=== PATIENT | female | born 1945 | race African-American/Black ===

== ENCOUNTER 2023-09-14 15:50 | Inpatient (IN) | payer MEDICAID ==
[~2023-09-14] VITALS: Ht 162.6 cm; Wt 43.1 kg
[2023-09-14] MEDS: SODIUM CHLORIDE 0.9% 500 ML IV ONE (16:41)
[2023-09-14 16:57] LABS: HEMATOCRIT. 28.2 % (36.0-48.0); HEMOGLOBIN. 9.7 g/dL (12.0-16.0); MEAN CORPUSCULAR HEMOGLOBIN 27.6 pg (28.0-32.0); MEAN CORPUSCULAR HGB CONC 34.4 g/dL (31.0-37.0); MEAN CORPUSCULAR VOLUME 80.3 fL (81.0-99.0); PLATELET 253 x1000/uL (130-400); RED BLOOD CELL COUNT 3.52 mill/uL (4.2-5.4); RED CELL DISTRIBUTION WIDTH 15.9 % (11.6-14.6); WHITE BLOOD COUNT 12.3 x1000/uL (4.5-11.0)
[2023-09-14 17:00] LABS: DIFFERENTIAL COMMENT 1
[2023-09-14 17:04] LABS: CHLORIDE 62 mEq/L (98-107); POTASSIUM 3.5 mEq/L (3.5-5.1)
[2023-09-14 17:05] LABS: CALCIUM 7.5 mg/dL (8.7-10.4); CARBON DIOXIDE 14 mEq/L (21-32)
[2023-09-14 17:09] LABS: AMMONIA 58 uMol/L (<32)
[2023-09-14 17:10] LABS: CREATININE 2.6 mg/dL (0.6-1.0); GLUCOSE 143 mg/dL (70-105)
[2023-09-14 17:11] LABS: ETHANOL BLOOD < 10 mg/dL (<10)
[2023-09-14 17:12] LABS: ACETAMINOPHEN 3 ug/mL (10-30); ALANINE AMINOTRANSFERASE 82 IU/L (10-49); ALBUMIN 3.6 g/dL (3.2-4.8); ASPARTATE AMINOTRANSFERASE 77 IU/L (<34); BILIRUBIN DIRECT 1.9 mg/dL (<=3.0); BILIRUBIN TOTAL 2.1 mg/dL (0.1-1.0); PROTEIN TOTAL 7.7 g/dL (6.0-8.3)
[2023-09-14 17:14] LABS: THYROID STIMULATING HORMONE 0.56 uIU/mL (0.55-4.78)
[2023-09-14 17:20] LABS: SODIUM 100 mEq/L (136-145); TROPONIN I HIGH SENSITIVITY 166 ng/L (3.0-34)
[2023-09-14 17:22] LABS: UREA NITROGEN BLOOD 204 mg/dL (9-23)
[2023-09-14 17:25] LABS: PLATELET ESTIMATE NORMAL
[2023-09-14] MEDS ORDERED: SODIUM CHLORIDE 3% 500ML IV SOLN IV ONE (17:45)
[2023-09-14 18:13] LABS: CLARITY URINE CLEAR (CLEAR); COLOR URINE DARK YELLOW (YELLOW); GLUCOSE URINE NEGATIVE (NEGATIVE); KETONES URINE NEGATIVE (NEGATIVE); LEUKOCYTE ESTERASE URINE NEGATIVE (NEGATIVE); NITRITE URINE NEGATIVE (NEGATIVE); OCCULT BLOOD URINE NEGATIVE (NEGATIVE); PROTEIN URINE NEGATIVE (NEGATIVE); SPECIFIC GRAVITY URINE 1.015 (1.005-1.030); UROBILINOGEN URINE 0.2 E.U./dL (0.2-1.0)
[2023-09-14] MEDS ORDERED: ASPIRIN 325MG EC TABLET PO ONE (18:15)
[2023-09-14 18:27] LABS: *AMPHETAMINES SCREEN URINE NEGATIVE (NEGATIVE); *BARBITURATES SCREEN URINE NEGATIVE (NEGATIVE); *BENZODIAZEPINES SCREEN URINE NEGATIVE (NEGATIVE); *COCAINE SCREEN URINE NEGATIVE (NEGATIVE); CANNABINOID URINE SCREEN NEGATIVE (NEGATIVE); ECSTASY MDMA SCREEN URINE NEGATIVE (NEGATIVE); METHADONE URINE SCREEN NEGATIVE (NEGATIVE); OPIATES URINE SCREEN NEGATIVE (NEGATIVE); PHENCYCLIDINE URINE SCREEN NEGATIVE (NEGATIVE)
[2023-09-14] MEDS: SODIUM CHLORIDE 3% 500 ML IV NR (18:50)
[2023-09-14] MEDS ORDERED: CALCIUM GLUCONATE 1GM PREMIX 50 ML IV ONE (19:00)
[2023-09-14] MEDS: ASPIRIN 325MG EC TABLET PO NR (19:22)
[2023-09-14] MEDS: CALCIUM GLUCONATE 1GM PREMIX 50 ML IV NR (20:48)
[2023-09-14] MEDS ORDERED: ONDANSETRON HCL 4MG/2ML INJ IV PRN (21:30)
[2023-09-14] MEDS ORDERED: IPRATROPIUM/ALBUTEROL 0.5-3(2.5)MG/3ML NEB NEB PRN (21:30)
[2023-09-14] MEDS: ASPIRIN 300MG SUPP PR NR (21:57)
[2023-09-14] MEDS: ENOXAPARIN 60MG/0.6ML SYR SUBCUT NR (21:57)
[2023-09-14 22:24] LABS: INR 1.1; PROTHROMBIN TIME 12.2 sec (9.6-11.0)
[2023-09-14 22:29] LABS: CREATININE 2.1 mg/dL (0.6-1.0)
[2023-09-14 22:45] LABS: POTASSIUM 2.6 mEq/L (3.5-5.1)
[2023-09-14] MEDS: CEFTRIAXONE 1GM/50ML 50 ML IV NR (22:48)
[2023-09-14] MEDS: SODIUM CHLORIDE 0.9% 1,000 ML IV SCH (22:49)
[2023-09-14] MEDS ORDERED: VANCOMYCIN 1.25GM PMX (XELLIA) 250 ML IV NR ×2 (23:00)
[2023-09-14] MEDS: PIPERACILLIN/TAZO 3.375G/50ML 50 ML IV SCH (23:20)
[2023-09-14 23:25] LABS: CALCIUM 7.9 mg/dL (8.7-10.4)
[2023-09-14 23:29] LABS: IRON 44 ug/dL (50-170)
[2023-09-14 23:34] LABS: FOLIC ACID (FOLATE) SERUM > 20.00 ng/mL (>5.38)
[2023-09-14] MEDS: VANCOMYCIN 1GM/200ML PMX (BAXTER) IV NR (23:56)
[2023-09-14 23:57] LABS: TOTAL IRON BINDING CAPACITY > 670 ug/dl (250-425)
[2023-09-15] VITALS (47 sets, daily range): BP systolic 75–110; BP diastolic 43–69; PULSE 72–118; RESP 11–27; TEMP 97.5–98.3
[2023-09-15 00:04] LABS: PHOSPHORUS 10.4 mg/dL (2.5-4.9)
[2023-09-15 00:06] LABS: VITAMIN B12 SERUM > 2000 pg/mL (211-911)
[2023-09-15] MEDS: PANTOPRAZOLE SODIUM 40 MG/VIAL IV SCH (00:15)
[2023-09-15] MEDS ORDERED: CALCIUM ACETATE 667MG CAPSULE PO ONE (00:15)
[2023-09-15 00:21] LABS: TROPONIN I HIGH SENSITIVITY 185 ng/L (3.0-34)
[2023-09-15] MEDS: CALCIUM ACETATE 667MG CAPSULE PO NR (00:30)
[2023-09-15] MEDS: METOCLOPRAMIDE HCL 10MG/2ML VIAL IV SCH (00:30)
[2023-09-15] MEDS ORDERED: SENNOSIDES/DOCUSATE SOD 8.6/50MG TABLET PO PRN (00:30)
[2023-09-15] MEDS ORDERED: PHENYLEPHRINE 50MG/250ML PMX 250 ML IV PRN (00:45)
[2023-09-15] MEDS: POTASSIUM CHLORIDE 40 MEQ in DEXT 5% WATER 230 ML IV NR (01:13)
[2023-09-15 06:01] LABS: HEMATOCRIT. 25.9 % (36.0-48.0); HEMOGLOBIN. 8.9 g/dL (12.0-16.0); MEAN CORPUSCULAR HEMOGLOBIN 27.4 pg (28.0-32.0); MEAN CORPUSCULAR HGB CONC 34.4 g/dL (31.0-37.0); MEAN CORPUSCULAR VOLUME 79.8 fL (81.0-99.0); MEAN PLATELET VOLUME 8.4 fl (7.4-10.4); PLATELET 208 x1000/uL (130-400); RED BLOOD CELL COUNT 3.24 mill/uL (4.2-5.4); RED CELL DISTRIBUTION WIDTH 15.5 % (11.6-14.6); WHITE BLOOD COUNT 12.9 x1000/uL (4.5-11.0)
[2023-09-15 06:13] LABS: CHLORIDE 84 mEq/L (98-107); POTASSIUM 3.1 mEq/L (3.5-5.1)
[2023-09-15 06:14] LABS: CALCIUM 7.6 mg/dL (8.7-10.4); CARBON DIOXIDE 15 mEq/L (21-32)
[2023-09-15 06:19] LABS: CREATININE 1.6 mg/dL (0.6-1.0); GLUCOSE 140 mg/dL (70-105); TRIGLYCERIDE 67 mg/dL (0-150); URIC ACID 12.7 mg/dL (3.1-7.8)
[2023-09-15 06:20] LABS: LDL CHOLESTEROL 49 mg/dL (5-100)
[2023-09-15 06:21] LABS: CHOLESTEROL 94 mg/dL (<200); HDL CHOLESTEROL 34 mg/dL (>65)
[2023-09-15 06:23] LABS: T4 FREE 1.59 ng/dL (0.89-1.76); THYROID STIMULATING HORMONE 0.46 uIU/mL (0.55-4.78)
[2023-09-15 06:25] LABS: DIFFERENTIAL COMMENT 1
[2023-09-15 08:16] LABS: SODIUM 115 mEq/L (136-145); UREA NITROGEN BLOOD 175 mg/dL (9-23)
[2023-09-15 08:17] LABS: PHOSPHORUS 8.5 mg/dL (2.5-4.9)
[2023-09-15] MEDS: INSULIN LISPRO 100 UNITS/ML SUBCUT SCH (08:20)
[2023-09-15] MEDS: BLOOD SUGAR DIAGNOSTIC STRIP TEST SCH (09:57)
[2023-09-15] MEDS: KCL 20MEQ/100ML PREMIX 100 ML IV SCH (09:57)
[2023-09-15] MEDS: PHENYLEPHRINE 50MG/250ML PMX 250 ML IV PRN (10:31)
[2023-09-15] MEDS ORDERED: SODIUM CHLORIDE 0.9% 1,000 ML IV SCH (10:45)
[2023-09-15 11:32] LABS: CALCIUM 7.8 mg/dL (8.7-10.4)
[2023-09-15 11:35] LABS: POTASSIUM 2.8 mEq/L (3.5-5.1)
[2023-09-15 11:37] LABS: CREATININE 1.5 mg/dL (0.6-1.0)
[2023-09-15] MEDS ORDERED: POTASSIUM CHLORIDE 40 MEQ in DEXT 5% WATER 230 ML IV ONE (12:00)
[2023-09-15] MEDS: KCL 20MEQ/100ML X 2 FOR TOTAL KCL 40MEQ/200ML IV SCH (12:05)
[2023-09-15 13:37] LABS: ANISOCYTOSIS 1+; GIANT PLATELETS FEW; MICROCYTOSIS 1+; PLATELET ESTIMATE NORMAL
[2023-09-15] MEDS: DEXTROSE 5% WATER 1,000 ML IV ONE (13:39)
[2023-09-15 16:48] LABS: POTASSIUM 3.2 mEq/L (3.5-5.1)
[2023-09-15 16:50] LABS: CALCIUM 7.8 mg/dL (8.7-10.4)
[2023-09-15 16:54] LABS: CREATININE 1.4 mg/dL (0.6-1.0)
[2023-09-15 22:10] LABS: CALCIUM 8.1 mg/dL (8.7-10.4)
[2023-09-15 22:15] LABS: CREATININE 1.4 mg/dL (0.6-1.0)
[2023-09-15 22:21] LABS: POTASSIUM 2.7 mEq/L (3.5-5.1)
[2023-09-15 22:59] LABS: PHOSPHORUS 6.9 mg/dL (2.5-4.9)
[2023-09-16] VITALS (61 sets, daily range): BP systolic 85–117; BP diastolic 46–75; PULSE 76–115; RESP 13–23; TEMP 97.4–98.4
[2023-09-16] MEDS: KCL 20MEQ/100ML PREMIX 100 ML IV SCH (01:32)
[2023-09-16 04:51] LABS: HEMATOCRIT. 26.6 % (36.0-48.0); HEMOGLOBIN. 9.1 g/dL (12.0-16.0); MEAN CORPUSCULAR HGB CONC 34.3 g/dL (31.0-37.0); MEAN CORPUSCULAR VOLUME 81.7 fL (81.0-99.0); MEAN PLATELET VOLUME 9.6 fl (7.4-10.4); PLATELET 254 x1000/uL (130-400); RED BLOOD CELL COUNT 3.26 mill/uL (4.2-5.4); RED CELL DISTRIBUTION WIDTH 15.8 % (11.6-14.6); WHITE BLOOD COUNT 14.1 x1000/uL (4.5-11.0)
[2023-09-16 04:55] LABS: DIFFERENTIAL COMMENT 1
[2023-09-16 04:59] LABS: CARBON DIOXIDE 11 mEq/L (21-32); CHLORIDE 94 mEq/L (98-107); POTASSIUM 2.9 mEq/L (3.5-5.1)
[2023-09-16 05:00] LABS: CALCIUM 8.2 mg/dL (8.7-10.4)
[2023-09-16 05:04] LABS: IRON 24 ug/dL (50-170)
[2023-09-16 05:05] LABS: CREATININE 1.2 mg/dL (0.6-1.0); GLUCOSE 183 mg/dL (70-105); INR 1.1; LACTIC ACID 2.8 mmol/L (0.4-2.0); PROTHROMBIN TIME 12.2 sec (9.6-11.0)
[2023-09-16 05:06] LABS: ALBUMIN 3.4 g/dL (3.2-4.8)
[2023-09-16 05:07] LABS: ALANINE AMINOTRANSFERASE 69 IU/L (10-49); AMMONIA 59 uMol/L (<32); ASPARTATE AMINOTRANSFERASE 70 IU/L (<34); BILIRUBIN TOTAL 2.2 mg/dL (0.1-1.0); PHOSPHORUS 5.4 mg/dL (2.5-4.9); PLATELET ESTIMATE NORMAL; PROTEIN TOTAL 7.3 g/dL (6.0-8.3)
[2023-09-16 05:08] LABS: GIANT PLATELETS FEW; TARGET CELLS 1+; TEAR DROP CELLS 1+
[2023-09-16 05:21] LABS: TOTAL IRON BINDING CAPACITY > 670 ug/dl (250-425)
[2023-09-16 05:22] LABS: SODIUM 119 mEq/L (136-145)
[2023-09-16 05:23] LABS: UREA NITROGEN BLOOD 136 mg/dL (9-23)
[2023-09-16] MEDS: PIPERACILLIN/TAZO 3.375G/50ML IV SCH (09:00)
[2023-09-16] MEDS: FAMOTIDINE 20MG/2ML VIAL IV SCH (09:00)
[2023-09-16] MEDS: KCL 20MEQ/100ML X 3 FOR TOTAL KCL 60MEQ/300ML IV SCH (09:15)
[2023-09-16 11:44] LABS: CLARITY URINE TURBID (CLEAR); COLOR URINE DARK YELLOW (YELLOW); GLUCOSE URINE NEGATIVE (NEGATIVE); KETONES URINE NEGATIVE (NEGATIVE); LEUKOCYTE ESTERASE URINE 3+ (NEGATIVE); NITRITE URINE NEGATIVE (NEGATIVE); OCCULT BLOOD URINE 3+ (NEGATIVE); PROTEIN URINE 1+ (NEGATIVE); SPECIFIC GRAVITY URINE 1.008 (1.005-1.030)
[2023-09-16 11:58] LABS: AMORPHOUS SEDIMENT URINE 4+ /lpf; SQUAMOUS EPITHELIAL CELL URINE FEW /lpf (RARE/1+)
[2023-09-16 11:59] LABS: MUCUS URINE 2+ /lpf (< = 2+)
[2023-09-16 12:03] LABS: BACTERIA URINE 4+
[2023-09-16 12:04] LABS: YEAST URINE 3+
[2023-09-16 12:06] LABS: RBC URINE NONE SEEN /hpf (0-2); WBC URINE NONE SEEN /hpf (0-2)
[2023-09-16] MEDS: SODIUM BICARBONATE 8.4% 50MEQ/50ML SYR IV NR (13:25)
[2023-09-16] MEDS: SODIUM BICARBONATE 100 MEQ in SODIUM CHLORIDE 0.45% 900 ML IV SCH (13:26)
[2023-09-16] MEDS: PHENYLEPHRINE 100 MG in DEXT 5% WATER 240 ML IV PRN (15:51)
[2023-09-16 21:08] LABS: CHLORIDE 101 mEq/L (98-107); POTASSIUM 4.1 mEq/L (3.5-5.1); SODIUM 125 mEq/L (136-145)
[2023-09-16 21:09] LABS: CALCIUM 8.3 mg/dL (8.7-10.4); CARBON DIOXIDE 14 mEq/L (21-32)
[2023-09-16 21:14] LABS: CREATININE 0.9 mg/dL (0.6-1.0); GLUCOSE 132 mg/dL (70-105); UREA NITROGEN BLOOD 70 mg/dL (9-23)
[2023-09-17] VITALS (96 sets, daily range): BP systolic 77–120; BP diastolic 43–92; PULSE 66–147; RESP 10–23; TEMP 96.8–98.6
[2023-09-17 05:44] LABS: BASOPHILS % 0.1 % (0.0-2.0); CHLORIDE 100 mEq/L (98-107); HEMATOCRIT. 25.8 % (36.0-48.0); HEMOGLOBIN. 8.9 g/dL (12.0-16.0); LYMPHOCYTES % 7.1 % (20.0-50.0); MEAN CORPUSCULAR HEMOGLOBIN 27.7 pg (28.0-32.0); MEAN CORPUSCULAR HGB CONC 34.5 g/dL (31.0-37.0); MEAN CORPUSCULAR VOLUME 80.2 fL (81.0-99.0); MEAN PLATELET VOLUME 9.2 fl (7.4-10.4); MONOCYTES % 6.6 % (2.0-8.0); NEUTROPHILS % 86.2 % (40.0-76.0); PLATELET 262 x1000/uL (130-400); POTASSIUM 3.4 mEq/L (3.5-5.1); RED BLOOD CELL COUNT 3.21 mill/uL (4.2-5.4); RED CELL DISTRIBUTION WIDTH 15.7 % (11.6-14.6); SODIUM 130 mEq/L (136-145); WHITE BLOOD COUNT 16.2 x1000/uL (4.5-11.0)
[2023-09-17 05:45] LABS: CALCIUM 8.3 mg/dL (8.7-10.4); CARBON DIOXIDE 19 mEq/L (21-32)
[2023-09-17 05:50] LABS: GLUCOSE 158 mg/dL (70-105); UREA NITROGEN BLOOD 100 mg/dL (9-23)
[2023-09-17 05:52] LABS: PHOSPHORUS 4.3 mg/dL (2.5-4.9)
[2023-09-17 09:06] LABS: ALPHA FETOPROTEIN TUMOR MARKER 2.2 ng/mL (0.0-9.2)
[2023-09-17] MEDS: KCL 20MEQ/100ML PREMIX 100 ML IV SCH ×2 (09:29→21:52)
[2023-09-17] MEDS: DEXT 5%/0.45% NACL 1000ML 1,000 ML IV SCH (09:29)
[2023-09-17] MEDS: SODIUM CHLORIDE 0.9% 1,000 ML IV ONE (09:54)
[2023-09-17] MEDS ORDERED: SODIUM CHLORIDE 0.9% 1,000 ML IV NR (10:15)
[2023-09-17 21:11] LABS: CHLORIDE 110 mEq/L (98-107); POTASSIUM 3.2 mEq/L (3.5-5.1); SODIUM 140 mEq/L (136-145)
[2023-09-17 21:13] LABS: CALCIUM 7.9 mg/dL (8.7-10.4); CARBON DIOXIDE 23 mEq/L (21-32)
[2023-09-17 21:18] LABS: CREATININE 0.8 mg/dL (0.6-1.0); GLUCOSE 119 mg/dL (70-105); UREA NITROGEN BLOOD 52 mg/dL (9-23)
[2023-09-18] VITALS (94 sets, daily range): BP systolic 74–135; BP diastolic 38–94; PULSE 50–89; RESP 10–21; TEMP 97.5–99.1
[2023-09-18 05:28] LABS: BASOPHILS % 0.1 % (0.0-2.0); EOSINOPHILS % 0.7 % (0.0-5.0); HEMATOCRIT. 23.5 % (36.0-48.0); HEMOGLOBIN. 7.7 g/dL (12.0-16.0); LYMPHOCYTES % 7.3 % (20.0-50.0); MEAN CORPUSCULAR HEMOGLOBIN 27.6 pg (28.0-32.0); MEAN CORPUSCULAR HGB CONC 32.9 g/dL (31.0-37.0); MEAN PLATELET VOLUME 8.9 fl (7.4-10.4); MONOCYTES % 5.1 % (2.0-8.0); NEUTROPHILS % 86.8 % (40.0-76.0); PLATELET 205 x1000/uL (130-400); RED BLOOD CELL COUNT 2.79 mill/uL (4.2-5.4); WHITE BLOOD COUNT 22.2 x1000/uL (4.5-11.0)
[2023-09-18 06:09] LABS: CHLORIDE 112 mEq/L (98-107); POTASSIUM 3.6 mEq/L (3.5-5.1); SODIUM 139 mEq/L (136-145)
[2023-09-18 06:10] LABS: CARBON DIOXIDE 20 mEq/L (21-32)
[2023-09-18 06:15] LABS: CREATININE 0.6 mg/dL (0.6-1.0); GLUCOSE 141 mg/dL (70-105); UREA NITROGEN BLOOD 38 mg/dL (9-23)
[2023-09-18] MEDS: KCL 20MEQ/100ML PREMIX 100 ML IV NR (09:09)
[2023-09-18] MEDS: FERROUS SULFATE 325MG TABLET PO SCH (13:02)
[2023-09-18 13:09] LABS: LACTIC ACID 2.6 mmol/L (0.4-2.0)
[2023-09-18] MEDS: MIDODRINE HCL 5MG TABLET PO SCH (14:24)
[2023-09-18] MEDS: SODIUM CHLORIDE 0.45% 1,000 ML IV SCH (15:59)
[2023-09-18] MEDS: ASCORBIC ACID 250 MG TABLET PO SCH (22:13)
[2023-09-19] VITALS (96 sets, daily range): BP systolic 86–129; BP diastolic 46–71; PULSE 57–107; RESP 11–27; TEMP 97.4–98.9
[2023-09-19 04:37] LABS: BASOPHILS % 0.1 % (0.0-2.0); EOSINOPHILS % 0.7 % (0.0-5.0); HEMATOCRIT. 23.9 % (36.0-48.0); HEMOGLOBIN. 7.6 g/dL (12.0-16.0); LYMPHOCYTES % 9.2 % (20.0-50.0); MEAN CORPUSCULAR HEMOGLOBIN 26.9 pg (28.0-32.0); MEAN CORPUSCULAR HGB CONC 31.7 g/dL (31.0-37.0); MEAN CORPUSCULAR VOLUME 84.8 fL (81.0-99.0); MEAN PLATELET VOLUME 8.8 fl (7.4-10.4); MONOCYTES % 5.1 % (2.0-8.0); NEUTROPHILS % 84.9 % (40.0-76.0); PLATELET 195 x1000/uL (130-400); RED BLOOD CELL COUNT 2.82 mill/uL (4.2-5.4); RED CELL DISTRIBUTION WIDTH 16.3 % (11.6-14.6); WHITE BLOOD COUNT 24.1 x1000/uL (4.5-11.0)
[2023-09-19 04:40] LABS: CHLORIDE 111 mEq/L (98-107); POTASSIUM 3.5 mEq/L (3.5-5.1); SODIUM 138 mEq/L (136-145)
[2023-09-19 04:41] LABS: CALCIUM 8.1 mg/dL (8.7-10.4); CARBON DIOXIDE 18 mEq/L (21-32)
[2023-09-19 04:45] LABS: UREA NITROGEN BLOOD 27 mg/dL (9-23)
[2023-09-19 04:46] LABS: CREATININE 0.6 mg/dL (0.6-1.0); GLUCOSE 123 mg/dL (70-105)
[2023-09-19 04:48] LABS: ALANINE AMINOTRANSFERASE 55 IU/L (10-49); ALBUMIN 2.9 g/dL (3.2-4.8); ASPARTATE AMINOTRANSFERASE 53 IU/L (<34); BILIRUBIN DIRECT 2.9 mg/dL (<=3.0); PHOSPHORUS 2.1 mg/dL (2.5-4.9)
[2023-09-19 04:49] LABS: AMMONIA 31 uMol/L (<32); BILIRUBIN TOTAL 3.5 mg/dL (0.1-1.0); PROTEIN TOTAL 6.2 g/dL (6.0-8.3)
[2023-09-19] MEDS: MAGNESIUM 2 G PREMIX 50 ML IV NR (05:33)
[2023-09-19] MEDS: POTASSIUM PHOSPHATE 20 MMOL in DEXT 5% WATER 243.3333 ML IV NR (05:51)
[2023-09-19] MEDS: CITRIC ACID/SODIUM CITRATE SOLN 30ML UDC PO SCH (08:24)
[2023-09-19] MEDS: ENOXAPARIN 30MG/0.3ML SYR SUBCUT SCH (08:24)
[2023-09-19] MEDS ORDERED: MIDODRINE HCL 5MG TABLET PO SCH (14:00)
[2023-09-19] MEDS ORDERED: MIDODRINE HCL 5MG TABLET PO NR (14:30)
[2023-09-19] MEDS: MIDODRINE HCL 5MG TABLET PO NR (14:58)
[2023-09-19 18:26] LABS: PHOSPHORUS 2.9 mg/dL (2.5-4.9)
[2023-09-19] MEDS: MIDODRINE HCL 5MG TABLET PO SCH (21:40)
[2023-09-20] VITALS (99 sets, daily range): BP systolic 76–133; BP diastolic 49–83; PULSE 65–94; RESP 11–29; TEMP 97.7–98.8
[2023-09-20 05:47] LABS: EOSINOPHILS % 0.3 % (0.0-5.0); HEMATOCRIT. 22.9 % (36.0-48.0); HEMOGLOBIN. 7.4 g/dL (12.0-16.0); LYMPHOCYTES % 13.4 % (20.0-50.0); MEAN CORPUSCULAR HEMOGLOBIN 27.4 pg (28.0-32.0); MEAN CORPUSCULAR HGB CONC 32.5 g/dL (31.0-37.0); MEAN CORPUSCULAR VOLUME 84.2 fL (81.0-99.0); MONOCYTES % 3.6 % (2.0-8.0); NEUTROPHILS % 82.7 % (40.0-76.0); PLATELET 168 x1000/uL (130-400); RED BLOOD CELL COUNT 2.72 mill/uL (4.2-5.4); RED CELL DISTRIBUTION WIDTH 16.7 % (11.6-14.6); WHITE BLOOD COUNT 19.5 x1000/uL (4.5-11.0)
[2023-09-20 05:56] LABS: AMMONIA 34 uMol/L (<32)
[2023-09-20] MEDS: INSULIN LISPRO 100 UNITS/ML SUBCUT SCH (06:00)
[2023-09-20] MEDS: BLOOD SUGAR DIAGNOSTIC STRIP TEST SCH (06:00)
[2023-09-20 06:02] LABS: CHLORIDE 106 mEq/L (98-107); POTASSIUM 3.5 mEq/L (3.5-5.1); SODIUM 137 mEq/L (136-145)
[2023-09-20 06:03] LABS: CALCIUM 8.1 mg/dL (8.7-10.4); CARBON DIOXIDE 22 mEq/L (21-32)
[2023-09-20 06:08] LABS: CREATININE 0.7 mg/dL (0.6-1.0); GLUCOSE 140 mg/dL (70-105); UREA NITROGEN BLOOD 21 mg/dL (9-23)
[2023-09-20 06:10] LABS: ALANINE AMINOTRANSFERASE 49 IU/L (10-49); ALBUMIN 2.8 g/dL (3.2-4.8); ASPARTATE AMINOTRANSFERASE 49 IU/L (<34); BILIRUBIN DIRECT 3.1 mg/dL (<=3.0); PHOSPHORUS 2.7 mg/dL (2.5-4.9)
[2023-09-20 06:11] LABS: BILIRUBIN TOTAL 3.9 mg/dL (0.1-1.0)
[2023-09-20] MEDS ORDERED: ZINC SULF/CUSO4 P-HYD/MANG/CR 10 ML VIAL IV SCH (08:20)
[2023-09-20] MEDS: MULTIVITAMINS,THER W-MINERALS TABLET PO SCH (13:19)
[2023-09-20] MEDS: SODIUM CHLORIDE 0.9% 1,000 ML IV SCH (14:09)
[2023-09-21] VITALS (96 sets, daily range): BP systolic 84–121; BP diastolic 44–71; PULSE 62–87; RESP 13–44; TEMP 97.7–98.5
[2023-09-21 05:54] LABS: BASOPHILS % 0.1 % (0.0-2.0); CHLORIDE 110 mEq/L (98-107); EOSINOPHILS % 0.4 % (0.0-5.0); HEMOGLOBIN. 7.7 g/dL (12.0-16.0); LYMPHOCYTES % 17.4 % (20.0-50.0); MEAN CORPUSCULAR HEMOGLOBIN 27.4 pg (28.0-32.0); MEAN CORPUSCULAR HGB CONC 32.1 g/dL (31.0-37.0); MEAN CORPUSCULAR VOLUME 85.5 fL (81.0-99.0); MEAN PLATELET VOLUME 8.8 fl (7.4-10.4); MONOCYTES % 4.1 % (2.0-8.0); PLATELET 131 x1000/uL (130-400); POTASSIUM 3.2 mEq/L (3.5-5.1); RED BLOOD CELL COUNT 2.81 mill/uL (4.2-5.4); RED CELL DISTRIBUTION WIDTH 17.2 % (11.6-14.6); SODIUM 143 mEq/L (136-145)
[2023-09-21 05:55] LABS: CARBON DIOXIDE 27 mEq/L (21-32)
[2023-09-21 05:56] LABS: CALCIUM 7.7 mg/dL (8.7-10.4)
[2023-09-21 06:00] LABS: CREATININE 0.6 mg/dL (0.6-1.0); GLUCOSE 114 mg/dL (70-105)
[2023-09-21 06:01] LABS: UREA NITROGEN BLOOD 22 mg/dL (9-23)
[2023-09-21 06:02] LABS: ALANINE AMINOTRANSFERASE 48 IU/L (10-49); ALBUMIN 2.5 g/dL (3.2-4.8); ASPARTATE AMINOTRANSFERASE 49 IU/L (<34)
[2023-09-21 06:03] LABS: AMMONIA < 17 uMol/L (<32); BILIRUBIN DIRECT 3.4 mg/dL (<=3.0); BILIRUBIN TOTAL 4.1 mg/dL (0.1-1.0); PROTEIN TOTAL 5.4 g/dL (6.0-8.3)
[2023-09-21] MEDS: POTASSIUM CHLORIDE 20MEQ/PACKET PO NR (10:03)
[2023-09-21 10:10] LABS: PHOSPHORUS 2.4 mg/dL (2.5-4.9)
[2023-09-21] MEDS: MAGNESIUM 2 G PREMIX 50 ML IV NR (11:08)
[2023-09-21] MEDS: MIDODRINE HCL 5MG TABLET PO SCH (13:07)
[2023-09-21] MEDS: POTASSIUM PHOSPHATE 20 MMOL in DEXT 5% WATER 243.3333 ML IV NR (13:07)
[2023-09-22] VITALS (97 sets, daily range): BP systolic 75–122; BP diastolic 44–69; PULSE 57–87; RESP 15–35; TEMP 98.1–98.8
[2023-09-22 06:16] LABS: BASOPHILS % 0.2 % (0.0-2.0); EOSINOPHILS % 0.6 % (0.0-5.0); HEMATOCRIT. 22.7 % (36.0-48.0); HEMOGLOBIN. 7.4 g/dL (12.0-16.0); LYMPHOCYTES % 21.9 % (20.0-50.0); MEAN CORPUSCULAR HEMOGLOBIN 27.7 pg (28.0-32.0); MEAN CORPUSCULAR HGB CONC 32.5 g/dL (31.0-37.0); MEAN CORPUSCULAR VOLUME 85.2 fL (81.0-99.0); MEAN PLATELET VOLUME 8.7 fl (7.4-10.4); MONOCYTES % 3.5 % (2.0-8.0); NEUTROPHILS % 73.8 % (40.0-76.0); PLATELET 121 x1000/uL (130-400); RED BLOOD CELL COUNT 2.67 mill/uL (4.2-5.4); RED CELL DISTRIBUTION WIDTH 17.1 % (11.6-14.6); WHITE BLOOD COUNT 10.8 x1000/uL (4.5-11.0)
[2023-09-22 06:17] LABS: CHLORIDE 109 mEq/L (98-107); POTASSIUM 3.5 mEq/L (3.5-5.1); SODIUM 140 mEq/L (136-145)
[2023-09-22 06:18] LABS: CARBON DIOXIDE 26 mEq/L (21-32)
[2023-09-22 06:19] LABS: CALCIUM 7.9 mg/dL (8.7-10.4)
[2023-09-22 06:22] LABS: UREA NITROGEN BLOOD 14 mg/dL (9-23)
[2023-09-22 06:23] LABS: CREATININE 0.5 mg/dL (0.6-1.0); GLUCOSE 120 mg/dL (70-105)
[2023-09-22 06:25] LABS: ALANINE AMINOTRANSFERASE 37 IU/L (10-49); ALBUMIN 2.5 g/dL (3.2-4.8); ASPARTATE AMINOTRANSFERASE 44 IU/L (<34)
[2023-09-22 06:26] LABS: BILIRUBIN TOTAL 3.6 mg/dL (0.1-1.0); PHOSPHORUS 2.7 mg/dL (2.5-4.9); PROTEIN TOTAL 5.5 g/dL (6.0-8.3)
[2023-09-22] MEDS: POTASSIUM CHLORIDE 20MEQ/PACKET PO NR (08:18)
[2023-09-22 10:00] LABS: D-DIMER 5.46 mg/L FEU (<0.50); INR 1.1; PROTHROMBIN TIME 12.1 sec (9.6-11.0)
[2023-09-22] MEDS ORDERED: POTASSIUM CHLORIDE 40 MEQ in DEXT 5% WATER 230 ML IV ONE (10:45)
[2023-09-22] MEDS: KCL 20MEQ/100ML X 2 FOR TOTAL KCL 40MEQ/200ML IV SCH (12:08)
[2023-09-22] MEDS: FLUDROCORTISONE ACETATE 0.1MG TABLET PO SCH (12:08)
[2023-09-22] MEDS: SODIUM CHLORIDE 0.45% 1,000 ML IV SCH (16:12)
[2023-09-23] VITALS (92 sets, daily range): BP systolic 77–119; BP diastolic 47–69; PULSE 64–87; RESP 16–32; TEMP 97.1–99.5
[2023-09-23 06:06] LABS: BASOPHILS % 0.3 % (0.0-2.0); EOSINOPHILS % 0.7 % (0.0-5.0); HEMATOCRIT. 22.3 % (36.0-48.0); HEMOGLOBIN. 7.4 g/dL (12.0-16.0); MEAN CORPUSCULAR HEMOGLOBIN 27.9 pg (28.0-32.0); MEAN CORPUSCULAR HGB CONC 33.3 g/dL (31.0-37.0); MEAN CORPUSCULAR VOLUME 83.8 fL (81.0-99.0); MONOCYTES % 4.2 % (2.0-8.0); NEUTROPHILS % 71.8 % (40.0-76.0); PLATELET 126 x1000/uL (130-400); RED BLOOD CELL COUNT 2.67 mill/uL (4.2-5.4); WHITE BLOOD COUNT 8.4 x1000/uL (4.5-11.0)
[2023-09-23 06:11] LABS: CHLORIDE 108 mEq/L (98-107); POTASSIUM 4.1 mEq/L (3.5-5.1); SODIUM 139 mEq/L (136-145)
[2023-09-23 06:12] LABS: CALCIUM 7.7 mg/dL (8.7-10.4); CARBON DIOXIDE 24 mEq/L (21-32)
[2023-09-23 06:17] LABS: CREATININE 0.5 mg/dL (0.6-1.0); GLUCOSE 119 mg/dL (70-105); UREA NITROGEN BLOOD 14 mg/dL (9-23)
[2023-09-23 06:19] LABS: ALANINE AMINOTRANSFERASE 36 IU/L (10-49); ALBUMIN 2.5 g/dL (3.2-4.8); ASPARTATE AMINOTRANSFERASE 46 IU/L (<34); BILIRUBIN DIRECT 3.2 mg/dL (<=3.0); PHOSPHORUS 2.3 mg/dL (2.5-4.9)
[2023-09-23 06:20] LABS: BILIRUBIN TOTAL 3.7 mg/dL (0.1-1.0); PROTEIN TOTAL 5.6 g/dL (6.0-8.3)
[2023-09-23] MEDS: POTASSIUM PHOSPHATE 20 MMOL in DEXT 5% WATER 243.3333 ML IV ONE (09:43)
[2023-09-23] MEDS: MAGNESIUM 4 G PREMIX 100 ML IV ONE (09:43)
[2023-09-23] MEDS ORDERED: PHENYLEPHRINE 100 MG in DEXT 5% WATER 240 ML IV PRN (10:12)
[2023-09-23] MEDS ORDERED: LIPASE/PROTEASE/AMYLASE 4,200/14,200/24,600 UNITS CAP DR PO SCH (13:20)
[2023-09-23] MEDS ORDERED: KETOROLAC 10MG TABLET PO ONE (13:45)
[2023-09-24] VITALS (55 sets, daily range): BP systolic 82–115; BP diastolic 48–66; PULSE 63–90; RESP 14–30; TEMP 90–99
[2023-09-24 07:43] LABS: BASOPHILS % 0.5 % (0.0-2.0); EOSINOPHILS % 0.6 % (0.0-5.0); LYMPHOCYTES % 26.5 % (20.0-50.0); MEAN CORPUSCULAR HEMOGLOBIN 27.5 pg (28.0-32.0); MEAN CORPUSCULAR HGB CONC 32.1 g/dL (31.0-37.0); MEAN CORPUSCULAR VOLUME 85.7 fL (81.0-99.0); MONOCYTES % 3.9 % (2.0-8.0); NEUTROPHILS % 68.5 % (40.0-76.0); RED BLOOD CELL COUNT 2.52 mill/uL (4.2-5.4); RED CELL DISTRIBUTION WIDTH 17.4 % (11.6-14.6)
[2023-09-24 07:48] LABS: CHLORIDE 105 mEq/L (98-107); POTASSIUM 4.3 mEq/L (3.5-5.1); SODIUM 135 mEq/L (136-145)
[2023-09-24 07:49] LABS: CALCIUM 7.7 mg/dL (8.7-10.4); CARBON DIOXIDE 24 mEq/L (21-32)
[2023-09-24 07:54] LABS: CREATININE 0.4 mg/dL (0.6-1.0); GLUCOSE 113 mg/dL (70-105)
[2023-09-24 07:55] LABS: UREA NITROGEN BLOOD 11 mg/dL (9-23)
[2023-09-24 07:56] LABS: ALANINE AMINOTRANSFERASE 34 IU/L (10-49); ALBUMIN 2.4 g/dL (3.2-4.8); ASPARTATE AMINOTRANSFERASE 53 IU/L (<34)
[2023-09-24 07:57] LABS: BILIRUBIN DIRECT 3.2 mg/dL (<=3.0); BILIRUBIN TOTAL 3.8 mg/dL (0.1-1.0); PHOSPHORUS 3.1 mg/dL (2.5-4.9); PROTEIN TOTAL 5.8 g/dL (6.0-8.3)
[2023-09-24 07:59] LABS: DIFFERENTIAL COMMENT 1; HEMATOCRIT. 21.6 % (36.0-48.0); HEMOGLOBIN. 6.9 g/dL (12.0-16.0)
[2023-09-24 10:02] LABS: BASOPHILS % 0.2 % (0.0-2.0); DIFFERENTIAL COMMENT 0; EOSINOPHILS % 0.4 % (0.0-5.0); LYMPHOCYTES % 23.7 % (20.0-50.0); MEAN CORPUSCULAR HEMOGLOBIN 27.4 pg (28.0-32.0); MEAN CORPUSCULAR HGB CONC 32.8 g/dL (31.0-37.0); MEAN CORPUSCULAR VOLUME 83.4 fL (81.0-99.0); MEAN PLATELET VOLUME 8.5 fl (7.4-10.4); NEUTROPHILS % 71.7 % (40.0-76.0); PLATELET 121 x1000/uL (130-400); RED BLOOD CELL COUNT 2.36 mill/uL (4.2-5.4); RED CELL DISTRIBUTION WIDTH 17.2 % (11.6-14.6); WHITE BLOOD COUNT 6.9 x1000/uL (4.5-11.0)
[2023-09-24 10:06] LABS: HEMOGLOBIN. 6.5 g/dL (12.0-16.0)
[2023-09-24 10:07] LABS: HEMATOCRIT. 19.7 % (36.0-48.0)
[2023-09-24] MEDS: [UNRECOGNIZED DRUG - OTHER] PO SCH (13:31)
[2023-09-24] MEDS ORDERED: CEFAZOLIN 1000MG PREMIX 50 ML IV NR (18:00)
[2023-09-24] MEDS: DEXT 5%/0.45% NACL 1000ML 1,000 ML IV SCH (18:21)
[2023-09-24] MEDS: CEFAZOLIN 1000MG PREMIX 50 ML IV NR (22:27)
[2023-09-24 23:33] LABS: HEMATOCRIT 25.9 % (36.0-48.0); HEMOGLOBIN 8.5 g/dL (12.0-16.0)
[2023-09-25] VITALS (57 sets, daily range): BP systolic 85–130; BP diastolic 51–73; PULSE 60–89; RESP 14–22; TEMP 97.6–98.2
[2023-09-25 05:47] LABS: BASOPHILS % 0.4 % (0.0-2.0); EOSINOPHILS % 0.5 % (0.0-5.0); HEMATOCRIT. 28.2 % (36.0-48.0); HEMOGLOBIN. 9.2 g/dL (12.0-16.0); LYMPHOCYTES % 31.7 % (20.0-50.0); MEAN CORPUSCULAR HEMOGLOBIN 28.5 pg (28.0-32.0); MEAN CORPUSCULAR HGB CONC 32.7 g/dL (31.0-37.0); MEAN CORPUSCULAR VOLUME 87.2 fL (81.0-99.0); MEAN PLATELET VOLUME 8.8 fl (7.4-10.4); MONOCYTES % 7.3 % (2.0-8.0); NEUTROPHILS % 60.1 % (40.0-76.0); PLATELET 109 x1000/uL (130-400); RED BLOOD CELL COUNT 3.23 mill/uL (4.2-5.4); RED CELL DISTRIBUTION WIDTH 17.1 % (11.6-14.6); WHITE BLOOD COUNT 6.1 x1000/uL (4.5-11.0)
[2023-09-25 05:53] LABS: CHLORIDE 104 mEq/L (98-107); POTASSIUM 3.8 mEq/L (3.5-5.1); SODIUM 136 mEq/L (136-145)
[2023-09-25 05:54] LABS: CALCIUM 7.7 mg/dL (8.7-10.4); CARBON DIOXIDE 24 mEq/L (21-32)
[2023-09-25 05:59] LABS: CREATININE 0.4 mg/dL (0.6-1.0); GLUCOSE 94 mg/dL (70-105); UREA NITROGEN BLOOD 13 mg/dL (9-23)
[2023-09-25 06:01] LABS: ALANINE AMINOTRANSFERASE 35 IU/L (10-49); ALBUMIN 2.4 g/dL (3.2-4.8); ASPARTATE AMINOTRANSFERASE 54 IU/L (<34); BILIRUBIN DIRECT 4.7 mg/dL (<=3.0); PHOSPHORUS 2.9 mg/dL (2.5-4.9)
[2023-09-25 06:02] LABS: BILIRUBIN TOTAL 6.1 mg/dL (0.1-1.0); PROTEIN TOTAL 5.7 g/dL (6.0-8.3)
[2023-09-25 06:24] LABS: INR 1.1; PROTHROMBIN TIME 11.9 sec (9.6-11.0)
[2023-09-26] VITALS (44 sets, daily range): BP systolic 101–131; BP diastolic 61–90; PULSE 63–105; RESP 15–34; TEMP 97.5–98.1
[2023-09-26 05:31] LABS: CHLORIDE 104 mEq/L (98-107); POTASSIUM 3.6 mEq/L (3.5-5.1); SODIUM 133 mEq/L (136-145)
[2023-09-26 05:32] LABS: BASOPHILS % 0.4 % (0.0-2.0); CARBON DIOXIDE 23 mEq/L (21-32); EOSINOPHILS % 0.5 % (0.0-5.0); HEMATOCRIT. 28.6 % (36.0-48.0); HEMOGLOBIN. 9.4 g/dL (12.0-16.0); LYMPHOCYTES % 33.3 % (20.0-50.0); MEAN CORPUSCULAR HEMOGLOBIN 28.7 pg (28.0-32.0); MEAN CORPUSCULAR HGB CONC 32.9 g/dL (31.0-37.0); MEAN CORPUSCULAR VOLUME 87.1 fL (81.0-99.0); MEAN PLATELET VOLUME 8.8 fl (7.4-10.4); MONOCYTES % 6.4 % (2.0-8.0); NEUTROPHILS % 59.4 % (40.0-76.0); PLATELET 142 x1000/uL (130-400); RED BLOOD CELL COUNT 3.29 mill/uL (4.2-5.4); RED CELL DISTRIBUTION WIDTH 17.4 % (11.6-14.6); WHITE BLOOD COUNT 4.4 x1000/uL (4.5-11.0)
[2023-09-26 05:33] LABS: CALCIUM 7.4 mg/dL (8.7-10.4)
[2023-09-26 05:37] LABS: CREATININE 0.4 mg/dL (0.6-1.0); GLUCOSE 134 mg/dL (70-105)
[2023-09-26 05:38] LABS: UREA NITROGEN BLOOD 9 mg/dL (9-23)
[2023-09-26 05:39] LABS: ALANINE AMINOTRANSFERASE 33 IU/L (10-49); ALBUMIN 2.3 g/dL (3.2-4.8); ASPARTATE AMINOTRANSFERASE 53 IU/L (<34)
[2023-09-26 05:40] LABS: INR 1.1; PROTHROMBIN TIME 12.4 sec (9.6-11.0)
[2023-09-27] MEDS: KETOROLAC 30MG/ML VIAL IV NR (01:39)
[2023-09-27 04:00] VITALS: BP 102/52; PULSE 77; RESP 18; TEMP 97.7
[2023-09-27 07:09] LABS: CHLORIDE 104 mEq/L (98-107); POTASSIUM 3.5 mEq/L (3.5-5.1); SODIUM 133 mEq/L (136-145)
[2023-09-27 07:10] LABS: CARBON DIOXIDE 22 mEq/L (21-32)
[2023-09-27 07:11] LABS: CALCIUM 7.3 mg/dL (8.7-10.4)
[2023-09-27 07:15] LABS: CREATININE 0.4 mg/dL (0.6-1.0); GLUCOSE 128 mg/dL (70-105)
[2023-09-27 07:16] LABS: UREA NITROGEN BLOOD 9 mg/dL (9-23)
[2023-09-27 07:21] LABS: BASOPHILS % 0.5 % (0.0-2.0); EOSINOPHILS % 1.3 % (0.0-5.0); HEMATOCRIT. 25.9 % (36.0-48.0); HEMOGLOBIN. 8.5 g/dL (12.0-16.0); LYMPHOCYTES % 41.2 % (20.0-50.0); MEAN CORPUSCULAR HEMOGLOBIN 28.4 pg (28.0-32.0); MEAN CORPUSCULAR HGB CONC 32.9 g/dL (31.0-37.0); MEAN CORPUSCULAR VOLUME 86.4 fL (81.0-99.0); MEAN PLATELET VOLUME 9.3 fl (7.4-10.4); PLATELET 140 x1000/uL (130-400); RED BLOOD CELL COUNT 2.99 mill/uL (4.2-5.4); RED CELL DISTRIBUTION WIDTH 18.4 % (11.6-14.6); WHITE BLOOD COUNT 3.8 x1000/uL (4.5-11.0)
[2023-09-27 07:31] LABS: INR 1.1; PROTHROMBIN TIME 12.4 sec (9.6-11.0)
[2023-09-27 08:41] VITALS: BP 90/50; PULSE 84; RESP 18; TEMP 98
[2023-09-27] MEDS ORDERED: SODIUM CHLORIDE 0.9% 250 ML IV NR (11:00)
[2023-09-27 12:00] VITALS: BP 103/61; PULSE 87; RESP 20; TEMP 97.9
[2023-09-27 20:00] VITALS: BP 92/52; PULSE 94; RESP 17; TEMP 97
[2023-09-27] MEDS: DEXTROSE 50% WATER 50ML SYRINGE IV PRN (20:25)
[2023-09-27] MEDS: KETOROLAC 15MG/ML VIAL IV NR (22:17)
[2023-09-28] VITALS: BP 93/50; PULSE 80; RESP 17; TEMP 97
[2023-09-28 04:00] VITALS: BP 94/52; PULSE 73; RESP 17; TEMP 97.4
[2023-09-28 08:00] VITALS: BP 114/70; PULSE 58; RESP 20; TEMP 97.2
[2023-09-28 11:29] LABS: HEMATOCRIT 29.3 % (36.0-48.0); HEMOGLOBIN 9.6 g/dL (12.0-16.0); MEAN CORPUSCULAR HEMOGLOBIN 28.5 pg (28.0-32.0); MEAN CORPUSCULAR HGB CONC 32.7 g/dL (31.0-37.0); MEAN CORPUSCULAR VOLUME 87.1 fL (81.0-99.0); PLATELET 179 x1000/uL (130-400); RED BLOOD CELL COUNT 3.36 mill/uL (4.2-5.4); RED CELL DISTRIBUTION WIDTH 19.3 % (11.6-14.6); WHITE BLOOD COUNT 3.1 x1000/uL (4.5-11.0)
[2023-09-28 11:44] LABS: CHLORIDE 107 mEq/L (98-107); POTASSIUM 4.3 mEq/L (3.5-5.1); SODIUM 133 mEq/L (136-145)
[2023-09-28 11:45] LABS: CALCIUM 7.6 mg/dL (8.7-10.4); CARBON DIOXIDE 21 mEq/L (21-32)
[2023-09-28 11:50] LABS: CREATININE 0.5 mg/dL (0.6-1.0); GLUCOSE 126 mg/dL (70-105); UREA NITROGEN BLOOD 10 mg/dL (9-23)
[2023-09-28 11:52] LABS: PHOSPHORUS 3.3 mg/dL (2.5-4.9)
[2023-09-28 12:00] VITALS: BP 109/58; PULSE 57; RESP 20; TEMP 97.3
[2023-09-28 16:00] VITALS: BP 94/54; PULSE 67; RESP 20; TEMP 97.4
[2023-09-28 20:00] VITALS: BP 94/52; PULSE 64; RESP 17; TEMP 98
[2023-09-29] VITALS: BP_SYST 113; BP_SYST 127; BP_DIAS 51; BP_DIAS 73; PULSE 61; RESP 18; TEMP 98.7
[2023-09-29 04:00] VITALS: BP 105/51; PULSE 75; RESP 20; TEMP 97.9
[2023-09-29 07:59] LABS: HEMATOCRIT 26.9 % (36.0-48.0); HEMOGLOBIN 8.8 g/dL (12.0-16.0); MEAN CORPUSCULAR HEMOGLOBIN 28.2 pg (28.0-32.0); MEAN CORPUSCULAR HGB CONC 32.5 g/dL (31.0-37.0); MEAN CORPUSCULAR VOLUME 86.9 fL (81.0-99.0); PLATELET 229 x1000/uL (130-400); RED CELL DISTRIBUTION WIDTH 19.7 % (11.6-14.6); WHITE BLOOD COUNT 3.8 x1000/uL (4.5-11.0)
[2023-09-29 08:00] VITALS: BP 112/54; PULSE 70; RESP 23; TEMP 98.1
[2023-09-29 08:05] LABS: CHLORIDE 106 mEq/L (98-107); POTASSIUM 3.7 mEq/L (3.5-5.1); SODIUM 135 mEq/L (136-145)
[2023-09-29 08:06] LABS: CALCIUM 7.5 mg/dL (8.7-10.4); CARBON DIOXIDE 23 mEq/L (21-32)
[2023-09-29 08:11] LABS: CREATININE 0.4 mg/dL (0.6-1.0); GLUCOSE 112 mg/dL (70-105); UREA NITROGEN BLOOD 12 mg/dL (9-23)
[2023-09-29 08:13] LABS: PHOSPHORUS 1.9 mg/dL (2.5-4.9)
[2023-09-29] MEDS: ACETAMINOPHEN 650MG/20.3ML UDC GT PRN (09:32)
[2023-09-29] MEDS: MAGNESIUM 4 G PREMIX 100 ML IV NR (10:38)
[2023-09-29 12:00] VITALS: BP 106/56; PULSE 79; RESP 18; TEMP 97.7
[2023-09-29] MEDS ORDERED: POTASSIUM PHOSPHATE 30 MMOL in SODIUM CHLORIDE 0.9% 490 ML IV SCH (14:00)
[2023-09-29] MEDS: POTASSIUM PHOSPHATE 30 MMOL in SODIUM CHLORIDE 0.9% 490 ML IV NR (14:58)
[2023-09-29 16:00] VITALS: BP 123/56; PULSE 74; RESP 18; TEMP 98.3
[2023-09-29 20:00] VITALS: BP 106/55; PULSE 75; RESP 20; TEMP 97.5
[2023-09-29] MEDS: DOCUSATE SODIUM 250MG CAPSULE PO PRN (22:43)
[2023-09-30 00:11] VITALS: BP 107/50; PULSE 66; RESP 19; TEMP 98.7
[2023-09-30 04:00] VITALS: BP 110/70; PULSE 81; RESP 19; TEMP 97.8
[2023-09-30 08:00] VITALS: BP 103/56; PULSE 76; RESP 19
[2023-09-30 12:00] VITALS: BP 96/45; PULSE 74; RESP 20; TEMP 98.2
[2023-09-30] MEDS ORDERED: MIDO5TAB4 PO (12:31)
[2023-09-30] MEDS ORDERED: FERR-63 PO (12:31)
[2023-09-30] MEDS ORDERED: ASCO250T22 PO (12:31)
[2023-09-30 14:38] VITALS: BP 133/87; PULSE 87; TEMP 98.5; O2SAT 98
== END 2023-09-30 15:50 | disposition home health service (06) | DRG 720 ==
LOC: ER 15:50 → EDBEDREQTM 19:28 → EDBEDREQSVC 19:28 → EDBEDREQ 19:28 → MICUSO 09-15 13:33 → CVICU 09-17 16:41 → 6WST 09-26 18:30
PROVIDERS: ADMIT Preventive Medicine Clinical Informatics; ATTEND Preventive Medicine Clinical Informatics
PROC: 02HV33Z Insertion of Infusion Device into Superior Vena Cava, Percutaneous Approach (ICD-10-PCS; 2023-09-18)
PROC: B548ZZA Ultrasonography of Superior Vena Cava, Guidance (ICD-10-PCS; 2023-09-18)
PROC: 30233N1 Transfusion of Nonautologous Red Blood Cells into Peripheral Vein, Percutaneous Approach (ICD-10-PCS; 2023-09-24)
PROC: 0DH68UZ Insertion of Feeding Device into Stomach, Via Natural or Artificial Opening Endoscopic (ICD-10-PCS; principal; 2023-09-27)
DX: A41.9 Sepsis, unspecified organism (principal); N17.0 Acute kidney failure with tubular necrosis; J96.01 Acute respiratory failure with hypoxia; G92.8 Other toxic encephalopathy; L89.153 Pressure ulcer of sacral region, stage 3; E44.0 Moderate protein-calorie malnutrition; E72.20 Disorder of urea cycle metabolism, unspecified; R64 Cachexia; E87.20 Acidosis, unspecified; I21.A1 Myocardial infarction type 2; D50.9 Iron deficiency anemia, unspecified; E87.1 Hypo-osmolality and hyponatremia; E86.0 Dehydration; K56.41 Fecal impaction; K59.81 Ogilvie syndrome; K82.8 Other specified diseases of gallbladder; E83.51 Hypocalcemia; E87.6 Hypokalemia; E11.65 Type 2 diabetes mellitus with hyperglycemia; D62 Acute posthemorrhagic anemia; Z66 Do not resuscitate; K29.70 Gastritis, unspecified, without bleeding; E88.09 Other disorders of plasma-protein metabolism, not elsewhere classified; I10 Essential (primary) hypertension; J44.9 Chronic obstructive pulmonary disease, unspecified; K44.9 Diaphragmatic hernia without obstruction or gangrene; R62.7 Adult failure to thrive; R74.01 Elevation of levels of liver transaminase levels; E83.39 Other disorders of phosphorus metabolism; R74.8 Abnormal levels of other serum enzymes; R65.20 Severe sepsis without septic shock; E80.6 Other disorders of bilirubin metabolism; R33.9 Retention of urine, unspecified; K94.23 Gastrostomy malfunction; S90.32XA Contusion of left foot, initial encounter; S90.31XA Contusion of right foot, initial encounter; Z68.1 Body mass index [BMI] 19.9 or less, adult; Z86.73 Personal history of transient ischemic attack (TIA), and cerebral infarction without residual deficits; Z74.01 Bed confinement status; Z79.4 Long term (current) use of insulin; Z79.52 Long term (current) use of systemic steroids; Z79.899 Other long term (current) drug therapy; Z85.09 Personal history of malignant neoplasm of other digestive organs; Z99.2 Dependence on renal dialysis; X58.XXXA Exposure to other specified factors, initial encounter; Y93.89 Activity, other specified; Y92.89 Other specified places as the place of occurrence of the external cause; Y99.8 Other external cause status; Y83.8 Other surgical procedures as the cause of abnormal reaction of the patient, or of later complication, without mention of misadventure at the time of the procedure; Y82.8 Other medical devices associated with adverse incidents
CPT/HCPCS: 36415; 36573; 71045; 74176; 76700; 76705; 80048; 80053; 80061; 80076; 80202; 80305; 80307; 80320; 80329; 81003; 82105; 82140; 82310; 82533; 82550; 82607; 82728; 82746; 82962; 83036; 83540; 83550; 83605; 83735; 83880; 83930; 84100; 84145; 84439; 84443; 84484; 84550; 85014; 85018; 85025; 85027; 85044; 85379; 85384; 86301; 86850; 86900; 86920; 87015; 87045; 87427; 87449; 89055; 93005; 93306; 93970; 99291; A6261; C1725; J0610; J0690; J0696; J1650; J1815; J1885; J2405; J2470; J2543; J2765; J3370; J3475; J3480; J3490; J7030; J7040; J7060; P9016; G0480